=== PATIENT | female | born 1990 | race Caucasian/White ===

== ENCOUNTER 2017-10-19 18:16 | Emergency (ER) | payer OTHER ==
[~2017-10-19] VITALS: Ht 160 cm; Wt 54.4 kg
[2017-10-19 19:07] VITALS: BP 103/64
--- NOTE | 2017-10-19 19:37 | NUR ---
PER [facility]UM[facility] ADMITTING, PATIENT LEFT [facility]
== END 2017-10-19 19:38 | disposition left against medical advice (07) ==
LOC: ER 18:25
DX: Z53.21 Procedure and treatment not carried out due to patient leaving prior to being seen by health care provider (principal)
CPT/HCPCS: A4606; Z7610

== ENCOUNTER 2017-10-19 20:23 | Emergency (ER) | payer OTHER ==
[~2017-10-19] VITALS: Ht 160 cm; Wt 54.4 kg
[2017-10-19 20:31] VITALS: BP 103/65
[2017-10-19] MEDS ORDERED: ACETAMINOPHEN 325 MG TABLET PO ONE (22:30)
[2017-10-19] MEDS ORDERED: ACETAMINOPHEN 325 MG TABLET ONE (22:42)
== END 2017-10-20 00:21 | disposition home or self-care (01) ==
LOC: ER 20:28
DX: S06.0X0A Concussion without loss of consciousness, initial encounter (principal); S16.1XXA Strain of muscle, fascia and tendon at neck level, initial encounter; S20.222A Contusion of left back wall of thorax, initial encounter; S50.11XA Contusion of right forearm, initial encounter; V43.52XA Car driver injured in collision with other type car in traffic accident, initial encounter; Y93.89 Activity, other specified; Y92.410 Unspecified street and highway as the place of occurrence of the external cause; Y99.8 Other external cause status
CPT/HCPCS: 72074-TC; 73110; A4606; Z7610